=== PATIENT | female | born 1985 | race Caucasian/White ===

== ENCOUNTER → 2017-10-31 13:28 | Observation (INO) ==
[2017-10-31 11:18] LABS: Basophils % 0.3 %; Eosinophils # 0.1 K/mcL (0.0-0.6); Eosinophils % 1.2 %; Hematocrit 40.1 % (35.3-44.9); Immature Granulocytes % 0.7 % (0-4); Lymphocytes # 2.1 K/mcL (0.6-4.6); Lymphocytes % 21.8 %; Mean Corpuscular HGB Conc 34.9 g/dL (31.6-35.5); Mean Corpuscular Hemoglobin 30.6 pg (28.0-33.3); Mean Corpuscular Volume 87.6 fL (83.0-100.0); Mean Platelet Volume 11.3 fL (9.4-12.4); Monocytes # 0.8 K/mcL (0.0-1.3); Monocytes % 8.5 %; Neutrophils # 6.4 K/mcL (1.6-8.9); Platelet Count 222 K/mcL (140-400); Red Blood Count 4.58 M/mcL (3.82-4.97); Red Cell Distribution Width 12.8 % (11.5-14.5); Segmented Neutrophils % 67.5 %
[2017-10-31 11:39] LABS: Alanine Aminotransferase 7 Units/L (7-52); Aspartate Amino Transferase 13 Units/L (13-39); BUN/Creatinine Ratio 16 (6-26); Blood Urea Nitrogen 7 mg/dL (6-20); Lactate Dehydrogenase 119 Units/L (140-271); Uric Acid 5.8 mg/dL (2.3-7.6); eGFR For Non-African Americans > 60 (> 60)
[2017-10-31 11:41] LABS: Amphetamine Screen,Urine Negative ng/mL (Cutoff=1000); Barbiturate Screen,Urine Negative ng/mL (Cutoff=200); Benzodiazepines Screen,Urine Negative ng/mL (Cutoff=200); Cannabinoid Screen,Urine Negative ng/mL (Cutoff = 50); Cocaine Screen,Urine Negative ng/mL (Cutoff= 300); Opiate Screen,Urine Negative ng/mL (Cutoff=300); Phencyclidine Screen,Urine Negative ng/mL (Cutoff=25)
[2017-10-31 11:42] LABS: Protein/Creatinine Ratio,Urine 0.13 mg/mg (0.00-0.20)
--- NOTE | 2017-10-31 13:36 | OB/GYN Progress Note ---
Date of Encounter: 10/31/17 Time of Encounter: 13:23 - Assessment and Plan (1) 37 weeks gestation of Current Visit: Yes Status: Acute (2) Gestational hypertension Current Visit: Yes Status: Acute Most BPs in triage within normal range, PIH labs negative, discharged home with PIH, labor and when to return to triage precautions. Patient verbalizes understanding Qualifiers: Trimester: third trimester Qualified Code(s): O13.3 - Gestational [ -induced] hypertension without significant proteinuria, third trimester Subjective - Subjective Interval history: 37+6 weeks gestation presents to triage with complaints of elevated blood pressure last night at home and then this morning, reports a headache, denies visual disturbances right upper quadrant pain contractions, leaking of fluid or vaginal bleeding. Patient with a history of preeclampsia in last and has not taken Tylenol for headache Antepartum ROS: movement normal, no loss of fluid, no vaginal bleeding, no contractions Objective - Vital Signs Vital Signs: Intake and Output 10/30/17 10/31/17 10/31/17 23:59 07:59 15:59 Other: Weight 101.8 kg Patient Weight 10/31/17 23:59 Weight 101.8 kg - Exam FHR: auscultation normal FHR comments: Baseline 135 Abdomen: Present: soft, gravid - Labs Labs: Abnormal lab results Creatinine 0.43 mg/dL (0.60-1.20) L 10/31/17 10:49 Lactate Dehydrogenase 119 Units/L (140-271) L 10/31/17 10:49 Urine Total Protein 20 mg/dL (1-14) H 10/31/17 10:49
== END | disposition home or self-care (01) ==
LOC: 1NENULAB
PROVIDERS: ADMIT Advanced Practice Midwife; ATTEND Advanced Practice Midwife

== ENCOUNTER 2017-11-04 12:40 | Inpatient (IN) ==
[2017-11-04 13:26] LABS: Basophils % 0.3 %; Eosinophils # 0.1 K/mcL (0.0-0.6); Eosinophils % 0.6 %; Hematocrit 38.6 % (35.3-44.9); Hemoglobin 13.4 g/dL (11.5-15.4); Immature Granulocytes % 0.8 % (0-4); Lymphocytes % 20.1 %; Mean Corpuscular HGB Conc 34.7 g/dL (31.6-35.5); Mean Corpuscular Hemoglobin 30.6 pg (28.0-33.3); Mean Corpuscular Volume 88.1 fL (83.0-100.0); Mean Platelet Volume 11.2 fL (9.4-12.4); Monocytes # 0.6 K/mcL (0.0-1.3); Monocytes % 6.2 %; Platelet Count 196 K/mcL (140-400); Red Blood Count 4.38 M/mcL (3.82-4.97); Red Cell Distribution Width 12.7 % (11.5-14.5)
[2017-11-04 13:50] LABS: Alanine Aminotransferase 7 Units/L (7-52); Amphetamine Screen,Urine Negative ng/mL (Cutoff=1000); Aspartate Amino Transferase 13 Units/L (13-39); BUN/Creatinine Ratio 17 (6-26); Barbiturate Screen,Urine Negative ng/mL (Cutoff=200); Benzodiazepines Screen,Urine Negative ng/mL (Cutoff=200); Blood Urea Nitrogen 9 mg/dL (6-20); Cannabinoid Screen,Urine Negative ng/mL (Cutoff = 50); Cocaine Screen,Urine Negative ng/mL (Cutoff= 300); Creatinine,Urine 122 mg/dL; Lactate Dehydrogenase 121 Units/L (140-271); Opiate Screen,Urine Negative ng/mL (Cutoff=300); Phencyclidine Screen,Urine Negative ng/mL (Cutoff=25); Protein/Creatinine Ratio,Urine 0.15 mg/mg (0.00-0.20); Uric Acid 6.2 mg/dL (2.3-7.6); eGFR For Non-African Americans > 60 (> 60)
--- NOTE | 2017-11-04 14:08 | OB/GYN History & Physical ---
Date of Encounter: 11/04/17 Time of Encounter: 13:58 Assessment and Plan (1) 38 weeks gestation of Current visit: Yes Status: Acute (2) Unstable lie of fetus Current visit: Yes Status: Acute Initially breech but fetus has moved to transverse lie at the time of US. Plan for possible version if needed and then IOL today given gestational HTN at 38+ weeks. Anticipate . Qualifiers: Fetus number: single or unspecified fetus Qualified Code(s): O32.0XX0 - Maternal care for unstable lie, not applicable or unspecified (3) Gestational hypertension Current visit: No Status: Acute mild range BP's in triage but some severe at home. Plan for delivery. Qualifiers: Trimester: third trimester Qualified Code(s): O13.3 - Gestational [ -induced] hypertension without significant proteinuria, third trimester History of Present Illness Chief complaint: HTN HPI: Ms. Cuellar is a 32 year old female presenting at 38w3d with c/o elevated BP's last evening. She reports headache and possibly seeing some spots around lights. No RUQ pain. Good FM. No leaking or bleeding. She reports BP's last evening were 140's-150's/90's-100's. She has tried Tylenol for her headache with no improvement but Tylenol doesn't usually work for her. She denies any other complaints. She does have a history of preeclampsia with delivery at 37 weeks. O positive Rubella immune Serologies negative Progenity cell free DNA GBS negative Past Med Surg Social Fam HX - Past Medical History Medical history: no medical history Psychiatric history: no psych history - Past Surgical History Surgical History: no surgical history Additional surgical history: SAB X2 (2013, 2014) - Social History Smoking Status: Never smoker Smokeless Tobacco Status: No Alcohol use: none Drug use: none - Family History Father Adopted: No Living Status: Still Living Hx Family Cardiac Disorders: Yes (stents, htn) Hx Family Respiratory Disorders: No Hx Family Cancer: No Hx Family GI Disorders: No Hx Family Endocrine Disorder: Yes (diabetic) Hx Family Neuromuscular Disorders: No Hx Family Neurologic Disorders: No Hx Family HEENT Disorders: No Hx Family Autoimmune Disorders: No Obstetrical History - Pregnancies : 4 Para: 1 Term: 1 : 0 Ab's: 2 Livin Medications and Allergies Pnv with Ca,No.72/Iron/FA [Pnv Plus Multivit Tab] 1 tab PO DAILY [History] Aspirin 81 mg PO DAILY 10/31/17 [History] 3 Allergy/AdvReac Type Severity Reaction Status Date / Time Bee Pollen Allergy Severe Anaphylaxis Verified 11/04/17 13:04 Review of System OB All systems PM: reviewed and no additional remarkable complaints except as stated Exam - Constitutional Constitutional: well developed, well nourished, no acute distress, average body habitus - HEENT HEENT: Mucus Membranes Moist - Lungs Respiratory exam: CTAB - Cardiovascular Cardiovascular exam: RRR - Abdomen Abdomen: Present: gravid (breech by obdulio, transverse on US by Dr. Cruz) , non tender - Extremities Extremities exam: normal inspection, pedal edema (mild bilaterally) Deep Tendon Reflex Grade: 1+ Diminished - Comments Comments: no clonus Results Result Diagrams: 11/04/17 13:12 11/04/17 13:12 Abnormal lab results Creatinine 0.53 mg/dL (0.60-1.20) L 11/04/17 13:12 Lactate Dehydrogenase 121 Units/L (140-271) L 11/04/17 13:12 Urine Total Protein 18 mg/dL (1-14) H 11/04/17 13:12 All other labs normal. - VTE Reasons for not Prescribing Prophylaxis: Treatment not Indicated - Low risk for VTE
[2017-11-04] MEDS ORDERED: Ringers Solution, Lactated 1,000 ML ONE ×2 (20:43→21:41)
--- NOTE | 2017-11-04 21:33 | Anesthesia Evaluation PreOp ---
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 HX Other Medical History: Other (gestational DM) Anesthesia History: No Prior Anesthetic Complications, Past Anesthesia Alcohol Use: none Drug use: none Medications and Allergies Pnv with Ca,No.72/Iron/FA [Pnv Plus Multivit Tab] 1 tab PO DAILY [History] Aspirin 81 mg PO DAILY 10/31/17 [History] 3 Allergy/AdvReac Type Severity Reaction Status Date / Time Bee Pollen Allergy Severe Anaphylaxis Verified 11/04/17 13:04 Anesthesia Results - Labs 11/04/17 13:12 11/04/17 13:12 Anesthesia Exam - HEENT Pupil (Motor): Pupils equal Mallampati: III Teeth: Normal Oral Opening: Greater than 3 - 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
[2017-11-04] MEDS ORDERED: EPHEDrine 50 MG/ML VIAL IVP PRN (21:39)
[2017-11-04] MEDS ORDERED: Lidocaine -MPF 2% 5 ML VIAL ONE (21:41)
[2017-11-04] MEDS ORDERED: Epidural Premix (fent/bupiv) 110 ML EP ONE (21:44)
[2017-11-04] MEDS ORDERED: Epidural Premix (fent/bupiv) 110 ML EP SCH (21:45)
--- NOTE | 2017-11-04 22:19 | Anesthesia Procedures ---
Date of Encounter: 11/04/17 Time of Encounter: 21:49 Procedures: Anesthesia - Epidural/Spinal Patient ID/Chart reviewed: Yes Patient examined: Yes OB Eval: : 2 OB Eval: Hx Para: 1 OB Eval: Contractions: Non-stressed pattern (recent version with trouble tracing , attempted sitting unable to trace.) Consent Obtained: Yes Supplemental Oxygen: None/Room Air Site Prep: Aseptic Technique, Sterile prep and drape, 0.5% Chlorhexidine/Alcohol Patient position: right lateral decubitus Local Anesthetic: Lidocaine 1% Amount of Local Anesthetic used: 2 Touhy Needle Gauge: 18 Touhy Needle Depth (cm): 8 Catheter Depth at Skin (cm): 12 Test Dose (1.5% Lido + Epi): Volume given (mls): 3 Test Dose Result: Negative Loading Dose: Other: 10ml from solution Loading Dose Administered: Thru Catheter Infusion Med: 0.125% Bupivacaine w/ 2 mcg/ml Fentanyl Infusion Rate (mls/hr): [address]: Tegaderm, Tape Interspace Used: L3-L4 Loss of Resistance ([place]): Yes (saline) Blood: No CSF: No Paresthesia: No Procedure: vss though out procedure, FHR stable per RN's
[2017-11-04] MEDS ORDERED: Naloxone 0.4 MG/ML INJ IVP PRN (22:26)
[2017-11-04] MEDS ORDERED: Famotidine 20 MG/2 ML VIAL IVP PRN (22:26)
[2017-11-04] MEDS ORDERED: Metoclopramide 10 MG/2 ML VIAL IVP PRN (22:26)
[2017-11-04] MEDS ORDERED: *HR* Nalbuphine 10 MG/ML AMPUL IVP PRN (22:26)
[2017-11-04] MEDS ORDERED: Ondansetron 4 MG/2 ML VIAL IVP PRN (22:26)
[2017-11-04] MEDS ORDERED: Ringers Solution, Lactated 1,000 ML IVC SCH (22:30)
[2017-11-04] MEDS ORDERED: Ondansetron 4 MG/2 ML VIAL ONE (22:31)
[2017-11-04] MEDS ORDERED: *HR* Ropivacaine/PF 0.5% 20 ML VIAL ONE (22:42)
[2017-11-04] MEDS ORDERED: Terbutaline 1 MG/ML VIAL SQ STA (22:43)
[2017-11-04] MEDS ORDERED: Terbutaline 1 MG/ML VIAL SQ ONE (22:44)
[2017-11-05] MEDS ORDERED: *HR* Promethazine 25 MG/ML VIAL IVP ONE (01:24)
--- NOTE | 2017-11-05 02:02 | OB Labor Progress Note ---
Date of Encounter: 11/05/17 Time of Encounter: 01:58 Labor Progress Note - Subjective Subjective: Pt feeling better, had alot of n/v after epidural and brethine. - Vital Signs Vital Signs: 138/72 - Cervix Cervix: 4/90/-1 - Heart Tones Heart Tones: RNST - Interventions Interventions: Pt has had in marisabel breech presentation with head in LUQ. She is now s/ p epidural and brethine. After obtaining consent attempt was made at external podalic version and was sucessful with sucessful conversion to vertex presentation. Amniotomy then performed of large amount of clear fluid. without difficulty. - Plan Plan: Expect .
[2017-11-05] MEDS ORDERED: Oxytocin 20 units/ LR 1000 mL 20 UNIT/1,000 ML BAG IVC SCH ×2 (02:45→16:33)
--- NOTE | 2017-11-05 11:48 | OB Labor Progress Note ---
Date of Encounter: 11/05/17 Time of Encounter: 11:45 Labor Progress Note - Subjective Subjective: Pt exhausted, starting to get more back pain. - Cervix Cervix: 6/80/-2 - Heart Tones Heart Tones: RNST - La Russell La Russell: UC's q 2-3 min 70-90 mmhg - Plan Plan: Pt has basically only made 2 cm cervical change in last 9 hours despite adequate labor. D/w pt options and she desires to proceed with primary c- section and BPS. Pt aware of operative risks and desires to proceed.
[2017-11-05] MEDS ORDERED: *HR* Morphine Sulfate/PF 10 MG/10 ML AMPUL ONE (11:59)
[2017-11-05] MEDS ORDERED: Lidocaine/EPI 1:200k 2% PF 20 ML VIAL ONE (11:59)
[2017-11-05] MEDS ORDERED: *HR* Oxytocin 10 UNIT/ML VIAL IM ONE (11:59)
[2017-11-05] MEDS ORDERED: EPHEDrine 50 MG/ML VIAL ONE (11:59)
[2017-11-05] MEDS ORDERED: Water for inj. (sterile) 10 ML IV ONE (12:00)
[2017-11-05] MEDS ORDERED: Azithromycin 1,000 MG in D5% in Water 250 ML IVPB ONE ×2 (12:09→13:00)
--- NOTE | 2017-11-05 12:10 | Anesthesia Evaluation PreOp ---
Date of Encounter: 11/05/17 Time of Encounter: 12:00 - Past History Planned Operation: Cardiac History: Denies any Significant Hx Pulmonary History: Denies Any Significant HX DRAMA CRITIC History: Denies Any Significant HX Other Medical History: Denies Any Significant HX Anesthesia History: No Prior Anesthetic Complications : Yes (Term ) Alcohol Use: none Drug use: none Medications and Allergies Pnv with Ca,No.72/Iron/FA [Pnv Plus Multivit Tab] 1 tab PO DAILY [History] Aspirin 81 mg PO DAILY 10/31/17 [History] 3 Allergy/AdvReac Type Severity Reaction Status Date / Time Bee Pollen Allergy Severe Anaphylaxis Verified 11/04/17 13:04 - Meds/Allergy Pre-op Review Medications Reviewed: Yes Allergies Reviewed: Yes Beta Blockers on Current Med List: No Anesthesia Results - Labs 11/04/17 13:12 11/04/17 13:12 Anesthesia Exam O2 Sat Height 1.78 m Weight 102.693 kg Height: 5'10 Weight: 226 lbs NPO (# of Hours): MN Pain Scale: 0 - HEENT Pupil (Motor): Pupils equal, EOMI Mallampati: II Teeth: Normal Oral Opening: Greater than 3 - DRAMA CRITIC LOC: Oriented DRAMA CRITIC Motor: Normal RUE, Normal LUE, Normal RLE, Normal LLE, Normal Face DRAMA CRITIC Sensory: Normal: RUE, LUE, RLE, LLE, Face - Cardiac Rhythm: Regular Murmur: None JVD: No Carotid Bruit: No - Pulmonary Breath Sounds: bilateral Clear Respiratory Effort: Symmetrical Anesthesia Assess/Plan ASA Score: 2 Modified [place] Scale for Level of Consciousness: Cooperative, oriented, and tranquil Anesthetic Plan: MAC Monitoring Plan: Standard Monitors Recovery Plan: PACU (Discussed MAC, agrees to proceed)
[2017-11-05] MEDS ORDERED: *HR* Morphine 2 MG/ML SYRINGE IVP PRN (12:56)
[2017-11-05] MEDS ORDERED: Ondansetron 4 MG/2 ML VIAL IVP ONE (12:56)
[2017-11-05] MEDS ORDERED: Acetaminophen IV 1,000 MG/100 ML INFUS..BTL IVPB ONE (12:56)
[2017-11-05] MEDS ORDERED: *HR* Promethazine 25 MG/ML VIAL IVP PRN (12:56)
[2017-11-05] MEDS ORDERED: *HR* HYDROmorphone (PF) 1 MG/ML SYRINGE IVP PRN (12:56)
[2017-11-05] MEDS ORDERED: Azithromycin 500 MG in D5% in Water 250 ML IVPB SCH (13:00)
[2017-11-05] MEDS ORDERED: Ondansetron 4 MG/2 ML VIAL ONE (13:01)
[2017-11-05] MEDS ORDERED: *HR* FentaNYL (PF) 100 MCG/2 ML VIAL ONE (13:06)
--- NOTE | 2017-11-05 13:37 | OB/GYN Procedure Note ---
Section - Date of procedure: 11/05/17 Preop diagnosis: arrest of descent, arrest of dilation, category 2 FHT tracing Post-op diagnosis: other (Conical cord 2, cord around body 1, molding) Procedure: section, primary low transverse Surgeon: Timmy Cruz Was there an public relations assistant present: No Anesthesiologist: Ricardo Garcia Recreational Assistant: Inés Kennedy Anesthesia Type: Epidural section complications: none Disposition: PACU - (s) A Infant Delivery Date: 11/05/17 Infant Delivery Time: 12:48 Presentation: vertex Gender: Male Gram Weight: 3.815 kg at 1 minute: 8 at 5 minutes: 9 Shoulder Dystocia: not encountered Placenta: spontaneous Cord: 3 umbilical vessels - Narrative Narrative: 32-year-old 3 para 1 female seen 36 gestational with elevated blood pressures and headache nausea and vomiting vision changes. Have an unstable lie she was having regular contractions cervix. Cervical dilatation to 3-4 cm. Infant was found to be very unstable lie going from left upper quadrant to the left lower quadrant. We did discuss concern to patient for possible membrane rupture and cord prolapse. Also was worried about patient's ovary blood pressures and neurologic symptoms especially given history of prior preeclampsia at 32 weeks requiring early delivery. After discussing with patient options she desired side attempted version which was however despite good contractions she did not have any further descent the vertex and only 2 cm dilatation over 10. Eventually she reached 6 cm dilation 80% effaced the did seem to be some swelling of the cervix head does not descend and there was noted to be molding. This point we did discuss with patient options and decision was made to proceed with primary section. Patient also expressed desire permanent sterilization and she elects previously expressed desire for. She signed appropriate consent. Description procedure: Patient was taken operating room epidural was dosed and get bladder was drained with Mckeon catheter. Scalpel was used to make Pfannenstiel skin incision which was sharply taken down the rectus fascia. Rectus fascia was less than incised in the midline scissors was extended bilaterally. Plane was developed and rectus muscle rectus fascia distally rectus muscle divided midline peritoneum was entered bluntly. Bladder blade was placed and bladder flap was developed and lower uterine segment. Scalpel was used to make a low transverse uterine incision which was extended bluntly bilaterally. Infant was delivered from vertex presentation was noted to be molding and head was somewhat asynclitic. Infant was delivered cord was clamped and cut and placenta was delivered manually without difficulty. Uterine cavity was massaged free of all residual tissue. Uterus closed the Vicryl running lock stitch second imbricating layer was placed with the first for hemostasis. Again irrigation was performed hemostasis was ensured approximate 4 similar segment of each fallopian tube was double ligated with oh plain catgut suture and then this knuckle of tube was resected. The free ends of the tube was cauterized with bipolar cautery. Irrigation was performed hemostasis was ensured. Fascia was closed 0 Vicryl running manner after closure of fascia again irrigation was performed hemostasis was assured skin edges reapproximated with 4-0 Vicryl. This point all sponge and instruments counts are correct patient was taken recovery in good condition.
--- NOTE | 2017-11-05 16:05 | Anesthesia Evaluation Post Op ---
Date of Encounter: 11/05/17 Time of Encounter: 16:00 - Vital Signs Vital Signs: VSS - Lungs Lungs: Clear Ascult./Percussion - Airway Airway: Non-obstructed - Cardiovascular Regular Rate - Mental Status Mental Status: Alert & Oriented, Answers Appropriately - Pain Pain Scale: 2 Pain Scale used: Numeric (1 - 10) - Nausea Vomiting Nausea Vomiting: Not Present - Hydration Hydration: Ice chips, Mckeon catheter - Discharge PostOp Status: Transfer Patient to floor
[2017-11-05] MEDS ORDERED: Metoclopramide 10 MG/2 ML VIAL IVP PRN (16:33)
[2017-11-05] MEDS ORDERED: Naloxone 0.4 MG/ML INJ IVP PRN (16:33)
[2017-11-05] MEDS ORDERED: Rho Immune Globulin 1,500 UNIT SYRINGE IM ONE (16:33)
[2017-11-05] MEDS ORDERED: Ondansetron 4 MG/2 ML VIAL IVP PRN (16:33)
[2017-11-05] MEDS ORDERED: Sennosides 8.6 MG TABLET PO PRN (16:33)
[2017-11-05] MEDS: *HR* OxyCODONE/APAP 5/325 TABLET PO PRN (23:46)
[2017-11-06] MEDS: Simethicone 80 MG TAB.CHEW PO PRN ×2 (01:06→19:39)
[2017-11-06] MEDS: Ibuprofen 600 MG TABLET PO PRN ×3 (03:33→19:39)
[2017-11-06 05:24] LABS: Basophils % 0.2 %; Eosinophils % 0.4 %; Hematocrit 29.6 % (35.3-44.9); Immature Granulocytes % 0.5 % (0-4); Lymphocytes # 1.2 K/mcL (0.6-4.6); Lymphocytes % 12.5 %; Mean Corpuscular HGB Conc 33.8 g/dL (31.6-35.5); Mean Corpuscular Hemoglobin 30.5 pg (28.0-33.3); Mean Corpuscular Volume 90.2 fL (83.0-100.0); Mean Platelet Volume 11.4 fL (9.4-12.4); Monocytes # 0.8 K/mcL (0.0-1.3); Monocytes % 7.9 %; Neutrophils # 7.8 K/mcL (1.6-8.9); Platelet Count 130 K/mcL (140-400); Red Blood Count 3.28 M/mcL (3.82-4.97); Red Cell Distribution Width 12.9 % (11.5-14.5); Segmented Neutrophils % 78.5 %
[2017-11-06] MEDS ORDERED: Ringers Solution, Lactated 1,000 ML ONE (07:05)
[2017-11-06] MEDS: *HR* OxyCODONE/APAP 5/325 TABLET PO PRN ×3 (08:57→21:12)
[2017-11-06] MEDS: Prenatal Vit/FA 1 EACH TABLET PO SCH (08:57)
--- NOTE | 2017-11-06 09:27 | OB/GYN Progress Note ---
Date of Encounter: 11/06/17 Time of Encounter: 09:25 - Assessment and Plan (1) S/P Current Visit: Yes Status: Acute Doing well post op. Will cont. post op care. will apply k-pad to right shoulder for shoulder pain. Subjective - Subjective Principal diagnosis: s/p Interval history: Doing well, c/o right shoulder pain. Reg diet without n/v. Ambulating. Good incisional pain control Patient reports: appetite normal : doing well Objective - Vital Signs Latest vital signs: Vital Signs Temp Pulse Pulse Resp BP Pulse Ox 11/06/17 05:05 97.5 F L 88 16 114/78 96 11/06/17 00:55 98.2 F 90 16 132/90 97 11/05/17 19:30 98.6 F 94 94 16 130/79 97 11/05/17 18:00 97.8 F 92 14 121/82 97 11/05/17 17:00 98.5 F 85 14 124/84 95 11/05/17 16:45 98.3 F 88 14 129/81 97 11/05/17 16:30 98.3 F 83 14 121/82 95 11/05/17 16:00 98.3 F 88 14 129/81 97 Intake and Output 11/05/17 11/06/17 11/06/17 23:59 07:59 15:59 Intake Total 0 / 0 Output Total 900 / 900 550 / 550 600 / 600 Balance -900 / -900 -550 / -550 -600 / -600 Intake: Oral 0 / 0 Output: Urine 600 / 600 Catheter 900 / 900 550 / 550 Other: Weight 109.6 kg 107 kg Patient Weight 11/06/17 23:59 Weight 107 kg - Exam Lungs: bilateral: normal Chest: Normal S1, Normal S2 Extremities: Present: normal Abdomen: Present: normal appearance, soft Incision: Present: normal, dry, intact, dressed - Labs Labs: Laboratory Results - last 24 hr 11/06/17 05:04 WBC 9.9 RBC 3.28 L Hgb 10.0 L D Hct 29.6 L MCV 90.2 MCH 30.5 MCHC 33.8 RDW 12.9 Plt Count 130 L MPV 11.4 Immature Gran % 0.5 Seg Neutrophils % 78.5 Lymphocytes % 12.5 Monocytes % 7.9 Eosinophils % 0.4 Basophils % 0.2 Neutrophils # 7.8 Lymphocytes # 1.2 Monocytes # 0.8 Eosinophils # 0.0 Basophils # 0.0
[2017-11-07] MEDS: *HR* OxyCODONE/APAP 5/325 TABLET PO PRN ×3 (02:41→12:06)
[2017-11-07] MEDS: Ibuprofen 600 MG TABLET PO PRN (04:35)
[2017-11-07 07:56] VITALS: BP 132/89
[2017-11-07] MEDS: Prenatal Vit/FA 1 EACH TABLET PO SCH (08:29)
--- NOTE | 2017-11-07 09:16 | Discharge Summary ---
Date of Encounter: 11/07/17 Time of Encounter: 09:21 - Discharge Diagnosis (1) S/P Priority: Primary Status: Acute Comments: Patient eating and drinking well. Does note some left shoulder pain which is improved with ibuprofen, heat, and Percocet. No pain currently. Patient states her mood is good. She has had no bowel movement yet but has passed flatus. Bonding well with baby. Breast-feeding. Patient is stable and ready for discharge. Follow-up 2 weeks post . (2) Gestational hypertension Priority: Secondary Status: Acute Comments: blood pressures have been stable. Qualifiers: Trimester: third trimester Qualified Code(s): O13.3 - Gestational [ -induced] hypertension without significant proteinuria, third trimester - Discharge Medications Prescriptions: OxyCODONE/APAP 5/325 [Percocet 5/325 MG] 1 each PO Q4HR PRN 7 Days #28 tablet PRN Reason: Moderate pain 4-6 Ibuprofen [Motrin] 600 mg PO Q6HR PRN 14 Days #56 tablet PRN Reason: Cramping Docusate [Colace] 100 mg PO BID 30 Days #60 capsule Home Medications: Pnv with Ca,No.72/Iron/FA [Pnv Plus Multivit Tab] 1 tab PO DAILY [History] Aspirin 81 mg PO DAILY 10/31/17 [History] Docusate [Colace] 100 mg PO BID 30 Days #60 capsule 11/07/17 [Rx] Ferrous Sulfate 325 mg PO 0800 tablet 11/07/17 [Rx] Ibuprofen [Motrin] 600 mg PO Q6HR PRN 14 Days #56 tablet 11/07/17 [Rx] OxyCODONE/APAP 5/325 [Percocet 5/325 MG] 1 each PO Q4HR PRN 7 Days #28 tablet [Rx] Vit/FA 1 each PO DAILY tablet 11/07/17 [Rx] Allergies/Adverse Reactions: 3 Allergy/AdvReac Type Severity Reaction Status Date / Time Bee Pollen Allergy Severe Anaphylaxis Verified 11/04/17 13:04 Data Procedures and tests throughout hospitalization: Laboratory Tests 11/04/17 11/04/17 11/04/17 13:12 13:12 13:12 WBC 9.8 RBC 4.38 Hgb 13.4 Hct 38.6 MCV 88.1 MCH 30.6 MCHC 34.7 RDW 12.7 Plt Count 196 MPV 11.2 Immature Gran % 0.8 Seg Neutrophils % 72.0 Lymphocytes % 20.1 Monocytes % 6.2 Eosinophils % 0.6 Basophils % 0.3 Neutrophils # 7.0 Lymphocytes # 2.0 Monocytes # 0.6 Eosinophils # 0.1 Basophils # 0.0 BUN 9 Creatinine 0.53 L Est GFR ( Amer) > 60 Est GFR (Non-Af Amer) > 60 BUN/Creatinine Ratio 17 Uric Acid 6.2 AST 13 ALT 7 Lactate Dehydrogenase 121 L Urine Creatinine 122 Protein/Creatinin Ratio 0.15 Urine Total Protein 18 H Urine Opiates Screen Negative Ur Barbiturates Screen Negative Ur Phencyclidine Scrn Negative Ur Amphetamines Screen Negative U Benzodiazepines Scrn Negative Urine Cocaine Screen Negative U Marijuana (THC) Screen Negative Ur Drug Screen Interp See Below 11/06/17 05:04 WBC 9.9 RBC 3.28 L Hgb 10.0 L D Hct 29.6 L MCV 90.2 MCH 30.5 MCHC 33.8 RDW 12.9 Plt Count 130 L MPV 11.4 Immature Gran % 0.5 Seg Neutrophils % 78.5 Lymphocytes % 12.5 Monocytes % 7.9 Eosinophils % 0.4 Basophils % 0.2 Neutrophils # 7.8 Lymphocytes # 1.2 Monocytes # 0.8 Eosinophils # 0.0 Basophils # 0.0 BUN Creatinine Est GFR ( Amer) Est GFR (Non-Af Amer) BUN/Creatinine Ratio Uric Acid AST ALT Lactate Dehydrogenase Urine Creatinine Protein/Creatinin Ratio Urine Total Protein Urine Opiates Screen Ur Barbiturates Screen Ur Phencyclidine Scrn Ur Amphetamines Screen U Benzodiazepines Scrn Urine Cocaine Screen U Marijuana (THC) Screen Ur Drug Screen Interp Date of admission: 11/04/17 12:40 Primary care physician: Jose L Moreland MD Discharging clinician: Karie López Anticipated date of discharge: 11/07/17 - Patient Status Disposition: Home, Self-Care Condition: Good Functional capacity at discharge: independent ambulation Overall status at discharge: patient is progressing back to baseline - Discharge Instructions Follow Up With: Jose L Moreland MD [Primary Care Provider] - Lisbeth Meyer CNM [Advanced Practice Nurse] - Additional Instructions: Your follow-up appointment is scheduled with nurse Kinsey warehouse stocker on . Please keep your incision clean and dry. Do not submerge in water. Monitor it for signs of infection including redness, warmth, tenderness, or white drainage. Pat dry after showers. No driving for the next 2 weeks as you continue to heal from your surgery. No lifting heavier than the baby. Please call the office should you develop any significant vaginal bleeding, feelings of hopelessness or worthlessness, or thoughts of harming yourself or others. Take ibuprofen 600 mg every 4-6 hours as needed for pain. Percocet 5 mg as needed for severe pain. Entry continue with stool softener as these medications can be constipating. Continue with oral rehydration. - Diet and Activity Activity: increase activity as tolerated Diet: advance to your usual diet Hospital Course [facility] Hospital course: Section - Date of procedure: 11/05/17 Preop diagnosis: arrest of descent, arrest of dilation, category 2 FHT tracing Post-op diagnosis: other (Conical cord 2, cord around body 1, molding) Procedure: section, primary low transverse Surgeon: Timmy Cruz Was there an dietary assistant present: No Anesthesiologist: Ricardo Garcia [employer] Manager: Inés Kennedy Anesthesia Type: Epidural section complications: none Disposition: PACU - (s) A Infant Delivery Date: 11/05/17 Infant Delivery Time: 12:48 Presentation: vertex Gender: Male Gram Weight: 3.815 kg at 1 minute: 8 at 5 minutes: 9 Shoulder Dystocia: not encountered Placenta: spontaneous Cord: 3 umbilical vessels - Narrative Narrative: 32-year-old 3 para 1 female seen 36 gestational with elevated blood pressures and headache nausea and vomiting vision changes. Have an unstable lie she was having regular contractions cervix. Cervical dilatation to 3-4 cm. Infant was found to be very unstable lie going from left upper quadrant to the left lower quadrant. We did discuss concern to patient for possible membrane rupture and cord prolapse. Also was worried about patient's ovary blood pressures and neurologic symptoms especially given history of prior preeclampsia at 32 weeks requiring early delivery. After discussing with patient options she desired side attempted version which was however despite good contractions she did not have any further descent the vertex and only 2 cm dilatation over 10. Eventually she reached 6 cm dilation 80% effaced the did seem to be some swelling of the cervix head does not descend and there was noted to be molding. This point we did discuss with patient options and decision was made to proceed with primary section. Patient also expressed desire permanent sterilization and she elects previously expressed desire for BPS. She signed appropriate consent. Description procedure: Patient was taken operating room epidural was dosed and get bladder was drained with Mckeon catheter. Scalpel was used to make Pfannenstiel skin incision which was sharply taken down the rectus fascia. Rectus fascia was less than incised in the midline scissors was extended bilaterally. Plane was developed and rectus muscle rectus fascia distally rectus muscle divided midline peritoneum was entered bluntly. Bladder blade was placed and bladder flap was developed and lower uterine segment. Scalpel was used to make a low transverse uterine incision which was extended bluntly bilaterally. Infant was delivered from vertex presentation was noted to be molding and head was somewhat asynclitic. Infant was delivered cord was clamped and cut and placenta was delivered manually without difficulty. Uterine cavity was massaged free of all residual tissue. Uterus closed the Vicryl running lock stitch second imbricating layer was placed with the first for hemostasis. Again irrigation was performed hemostasis was ensured approximate 4 similar segment of each fallopian tube was double ligated with oh plain catgut suture and then this knuckle of tube was resected. The free ends of the tube was cauterized with bipolar cautery. Irrigation was performed hemostasis was ensured. Fascia was closed 0 Vicryl running manner after closure of fascia again irrigation was performed hemostasis was assured skin edges reapproximated with 4-0 Vicryl. This point all sponge and instruments counts are correct patient was taken recovery in good condition. Time Attestation: Total time spent providing and/or coordinating discharge services: Time Spent: Less than 30 minutes Exam - Constitutional Vitals: Temp Pulse Resp BP Pulse Ox 97.7 F 91 16 132/89 97 11/07/17 07:30 11/07/17 07:30 11/07/17 07:30 11/07/17 07:30 11/06/17 19:40 General appearance IM: A&O X 3, pleasant, no acute distress, answers questions appropriately - Respiratory Respiratory exam: Present: CTAB - Cardiovascular Cardiovascular exam IM: Present: RRR, +S1, +S2 - GI/Abdominal GI/Abdominal exam IM: normal bowel sounds Incision: normal, dry, intact, dressed (with steristrips) - Uterine Tone: Firm Uterus Position: At Umbilicus, Midline - Extremities Exam Extremities exam IM: Absent: calf tenderness, pedal edema, tenderness (left shoulder) - Neurological Exam Neurological exam: alert, oriented X3 - Psychiatric Additional comments: States her mood is "good" - VTE Reasons for not Prescribing Prophylaxis: Treatment not Indicated - Low risk for VTE Documentation of Mechanical Device: Intermittent pneumatic compression device - Attending Attestation I examined this patient and my medical decision-making was reviewed with the Resident Physician. I agree with the documented findings, disposition and treatment plan as described except to the extent set forth below. Galilea Costa CNM
== END 2017-11-07 13:14 | disposition home or self-care (01) | DRG 785 ==
LOC: 1NENULAB → OBSVTOIN 12:40 → 1NENUOBS 11-05 16:08
PROVIDERS: ADMIT Registered Nurse; ATTEND Registered Nurse